=== PATIENT | female | born 1995 ===

== ENCOUNTER 2016-10-02 19:37 | Emergency (ER) | payer OTHER ==
--- NOTE | 2016-10-02 21:51 | UC ---
Throat Pain/Nasal Umair HPI - HPI Summary HPI Summary: 20 yo female presents with c/o sore throat for starting 4 days ago. was treated for strep in the beginning of September and finished course of azithromycin. Pt reports left tonsil has been swollen since then but over the last 4 days has increased in size. denies fever or chills. has been able to eat normal foods and continue normal activities. No rhinorrhea, but reports nasal congestion. no RAYMUNDO, cough. - History of Current Complaint Chief Complaint: UCRespiratory Stated Complaint: THROAT COMPLAINT Time Seen by Provider: 10/02/16 21:23 Hx Obtained From: Patient, Family/Piggery Worker - grandmother Hx Last Menstrual Period: <1 WEEK AGO ?: No Onset/Duration: Gradual Onset, Lasting Days Severity: Mild Pain Intensity: 2 Pain Scale Used: 0-10 Numeric Cough: Nonproductive Associated Signs & Symptoms: Positive: Negative Related History: Seasonal Allergies - Epiglottits Risk Factors Epiglottis Risk Factors: Negative - Allergies/Home Medications Allergies/Adverse Reactions: Allergies Allergy/AdvReac Type Severity Reaction Status Date / Time No Known Allergies Allergy Verified 10/02/16 20:10 Home Medications: Home Medications Control* 10/02/16 [History] Levothyroxine TAB* [Synthroid 25 MCG TAB*] 25 mcg PO DAILY 10/02/16 [History Confirmed 10/02/16] PMH/Surg Hx/FS Hx/Imm Hx Previously Healthy: Yes Endocrine History Of: Reports: Thyroid Disease - HYPOTHYROID - Surgical History Surgical History: Yes Surgery Procedure, Year, and Place: WISDOM TEETH - Family History Known Family History: Positive: Hypertension - Social History Occupation: Student Alcohol Use: Occasionally Substance Use Type: None Smoking Status (MU): Never Smoked Tobacco Have You Smoked in the Last Year: No - Immunization History Hx Tetanus, Diphtheria Vaccination: Yes Vaccination Up to Date: Yes Review of Systems Constitutional: Other Skin: Negative Eyes: Negative ENT: Sore Throat, Other - nasal congestion Respiratory: Negative Cardiovascular: Negative Gastrointestinal: Negative Genitourinary: Negative Motor: Negative Neurovascular: Negative Musculoskeletal: Negative Neurological: Negative Psychological: Negative All Other Systems Reviewed And Are Negative: Yes Physical Exam Triage Information Reviewed: Yes Appearance: Well-Appearing, No Pain Distress, Well-Nourished Vital Signs: Initial Vital Signs Temp 98.3 F 10/02/16 20:06 Pulse 72 10/02/16 20:06 Resp 16 10/02/16 20:06 BP 122/67 10/02/16 20:06 Pulse Ox 100 10/02/16 20:06 Vital Signs Reviewed: Yes Eye Exam: Normal Eyes: Positive: Conjunctiva Clear ENT: Positive: Normal ENT inspection, Pharyngeal erythema, TMs normal, Tonsillar swelling - right tonsil 1+, left tonsil 2+ - no exudate Neck: Positive: Supple, Nontender, No Lymphadenopathy. Negative: Nuchal Rigidity Respiratory: Positive: Chest non-tender, Lungs clear, Normal breath sounds, No respiratory distress, No accessory muscle use Cardiovascular: Positive: RRR, No Murmur, Pulses Normal, Brisk Capillary Refill Abdomen Description: Positive: Nontender, Soft, Peritoneal Signs Bowel Sounds: Positive: Present Musculoskeletal: Positive: Strength Intact, ROM Intact, No Edema Neurological: Positive: Alert Skin Exam: Normal Throat Pain/Nasal Course/Dx - Course Course Of Treatment: suspect viral illness; plan for supportive treatment - Differential Dx/Diagnosis Differential Diagnosis/HQI/PQRI: Pharyngitis, URI Provider Diagnoses: 1. Pharyngitis Discharge - Discharge Plan Condition: Stable Disposition: HOME Prescriptions: Cetirizine* [ZyrTEC 10 MG TAB*] 10 mg PO DAILY #30 tab Chlorhexidine MW 0.12% 473ML* [Peridex Mouth Wash 0.12%] 15 ml MT BID #1 bottle Patient Education Materials: Pharyngitis (ED) Referrals: No Primary Care Phys,NOPCP [Primary Care Provider] - Additional Instructions: Most likely you have a viral illness. Your strep was negative, we have sent it to the lab for culture, call in 2 days for results. Consider follow up with an ENT if your symptoms do not improve in the next 2 weeks. If you develop any fever, chills or worsening pain return for evaluation.
== END 2016-10-02 22:18 | disposition home or self-care (01) ==
LOC: UCEAST 19:37
DX: J02.9 Acute pharyngitis, unspecified (principal); R09.81 Nasal congestion; E03.9 Hypothyroidism, unspecified
CPT/HCPCS: 87070; 87651; 99202; G0463